=== PATIENT | female | born 1930 | race Caucasian/White ===

== ENCOUNTER 2017-06-13 07:31 | Day surgery (SDC) | payer OTHER ==
[~2017-06-13] VITALS: Ht 147.3 cm; Wt 35.5 kg
[~2017-06-13 07:31] MED LIST: ADVIL200 MG PO; BENEFIBER152 GM PO; COREG12.5 M1 PO; FLOVENT 11120 INHALA IH; FOSAMAX70 MG PO; LOPERAMIDE2 MG PO; PERCOCET 5/31 TABLET PO; PREDNISONE20 MG PO; PROAIR HFA8.5 GM IH; PROVENTIL,2.5 MG/3 M IH; WOMEN'S DAILY1 EAC4 PO; ZOCOR10 MG PO
[2017-06-13 08:18] LABS: INTER. NORMALIZED RATIO 0.9; PROTHROMBIN TIME 9.8 SEC (10.2-12.9)
[2017-06-13 08:21] LABS: PTT 23.3 SEC (25-37)
[2017-06-13 09:05] VITALS: BP 203/80
[2017-06-13] MEDS ORDERED: HYDROCODON-ACE1 EAC7 PO (15:39)
[2017-06-13 17:00] VITALS: BP 125/57
[2017-06-13 18:00] VITALS: BP 140/62
== END 2017-06-13 19:05 | disposition home or self-care (01) ==
LOC: SDC 07:31
PROVIDERS: Surgery
DX: C50.212 Malignant neoplasm of upper-inner quadrant of left female breast (principal); Z17.0 Estrogen receptor positive status [ER+]; J44.9 Chronic obstructive pulmonary disease, unspecified; I10 Essential (primary) hypertension; E78.5 Hyperlipidemia, unspecified; M81.0 Age-related osteoporosis without current pathological fracture; Z87.891 Personal history of nicotine dependence; Z90.710 Acquired absence of both cervix and uterus
CPT/HCPCS: 78195; 85610; 85730; 88305; 88307; A9541; J0360; J0690; J1100; J2405; J2765; J3010; S0020